=== PATIENT | female | born 1945 | race Caucasian/White ===

== ENCOUNTER 2017-05-16 03:05 | Observation (INO) | payer MEDICARE ==
--- OUTSIDE RECORDS SUMMARY | 2017-05-16 03:18 | XMS REPORT ---
:1945 External Reference #:[id number] Author Organization [employer] Address [address] [address] Phone [phone] Care Team Providers Name Role Phone Javier Thorne DO Primary Care Physician Unavailable Payers Type Date Identification Payment Subscriber Numbers Provider Health Maintenance Effective: Policy Number: Medicare Blue Jaja Gracia ([facility] [place]) 04/17/2013 [id number] [facility] Number: [id number] [address] PayID: [id number] VISHAL Villatoro [address] Problems Date Description Provider Status Onset: 08/27/2015 Headache Darian Grossman M.D. Active Family History Date Family Member(s) Problem(s) Comments Father Arrhythmia Father Heart Disease CABG x3 Father Stroke Mother Heart Disease Mother Stomach Cancer Onset: (2016) Mother Gallstones Mother Aortic valve replacement Mother Stroke Social History Type Date Description Comments Marital Status Single Lives With Male Partner Occupation Retired ETOH Use Denies alcohol use Smoking Patient has never smoked Recreational Drug Use Denies Drug Use Daily Caffeine Consumes on average 2 cups of regular coffee per day Exercise Type/Frequency Exercises rarely Allergies, Adverse Reactions, Alerts Date Description Reaction Status Severity Comments 2016 Beta Adrenergic Blockers itching active 08/27/2015 NKDA inactive Medications Medication Date Status Form Strength Qnty SIG Indications Ordering Provider Venlafaxine HCL 05/04/ Active Tablets 75mg 30tabs 1/2 po qd F06.32 Darian Yoo for 2 [place], weeks then M.D. 1 qd Clopidogrel 00/00/ Active Tablets 75mg 1 by mouth Unknown Bisulfate 0000 every day Pravastatin 0000/ Active Tablets 20mg 1 tablet Unknown Sodium 0000 by mouth once daily at bedtime Furosemide 00/ Active Tablets 20mg 1-2 tabs Unknown 0000 po daily for swelling prn Potassium 00/00/ Active Tablets 99mg once a day Unknown 0000 Prednisone 00/00/ Active Tablets 5mg 1 by mouth Unknown 0000 every day Valium 00/ Active Tablets 2mg 1 by mouth Unknown 0000 twice a day as needed Chlorthalidone / Active Tablets 25mg 1 by mouth Unknown 0000 every day Aspirin 00/ Active Tablets 81mg 4 by mouth Unknown 0000 every day Emergen-C Blue / Active Packet as needed Unknown 0000 Claritin / Active Capsules 10mg 1 tab Unknown 0000 daily as needed Topiramate 08/26/ Hx Tablets 25mg 30tabs 1 po qday Darian Frazier 2015 - Chauncey, M.D. 2016 Amlodipine 08/19/ Hx Tablets 5mg 30tabs 1 by mouth Darian Frazier Besjose manuel 2015 - every day Chauncey, M.D. 2015 Verapamil HCL 08/19/ Hx Tablets 40mg 60tabs 1 po bid Darian Frazier 2016 - Chauncey, M.D. 2017 Topiramate 07/25/ Hx Caps 25mg 240cap 4 po bid Darian Frzaier 2016 - Suzy lawton (currently Chauncey, 08/26/ taking 1 M.D. 2015 PO qd) Aspirin 00/ Hx Tablets 325mg 1 by mouth Unknown 0000 - every day 2016 Zyrtec Allergy / Hx Capsules 10mg 1 by mouth Unknown 0000 - every day 2016 Prednisone 00/ Hx Tablets 1mg 1-4 by Unknown 0000 - mouth 04/18/ every day 2018 as directed. Vital Signs Date Vital Result Comment 05/04/2017 Height 61 inches 5'1" Weight 179.25 lb Heart Rate 82 /min BP Systolic Sitting 128 mmHg BP Diastolic Sitting 82 mmHg Respiratory Rate 18 /min O2 % BldC Oximetry 94 % BMI (Body Mass Index) 33.9 kg/m2 12/28/2016 Height 61 inches 5'1" Weight 179.00 lb Heart Rate 64 /min BP Systolic 166 mmHg Rue reg cuff BP Diastolic 92 mmHg Rue reg cuff BP Systolic Sitting 162 mmHg Lue reg cuff BP Diastolic Sitting 92 mmHg Lue reg cuff BP Systolic Standing 168 mmHg Lue BP Diastolic Standing 70 mmHg Lue Respiratory Rate 16 /min BMI (Body Mass Index) 33.8 kg/m2 Ejection Fraction 60-65% 07/26/15 01/07/2016 Height 61 inches 5'1" Weight 140.00 lb Heart Rate 66 /min BP Systolic Sitting 124 mmHg BP Diastolic Sitting 76 mmHg O2 % BldC Oximetry 98 % BMI (Body Mass Index) 26.4 kg/m2 08/27/2015 Height 61 inches 5'1" Weight 139.00 lb Heart Rate 68 /min BP Systolic Sitting 128 mmHg BP Diastolic Sitting 80 mmHg Respiratory Rate 16 /min BMI (Body Mass Index) 26.3 kg/m2 Results Description No Information Procedures Date CPT Code Description Status 12/28/2016 13637 EKG Tracing & Interpretation Completed 07/26/2015 57021 ECHO Transthorasic Realtime 2D W Doppler & Color Completed Flow Hosp 07/25/2015 25161 EEG Recording Awake & Drowsy Completed 11/27/2013 53205 ECHO Stress Test Incl Perf Contiuous ekg Monitoring Completed W/Phys Superv Encounters Type Date Location Provider CPT E/M Dx Office Visit 12/28/2016 [facility] [address] R07.9 3:00p [facility] I10 M35.3 I65.22 R94.31 Office Visit 01/07/2016 8:45a [place] Darian Grossman, [address] I10 Serv Of Colby Turk R41.89 Z86.73 Office Visit 08/27/2015 10:30a [facility] Darian Grossman [address]405 G97.82 [place] I63.511 Office Visit 07/26/2015 11:46a [facility] Darian Grossman 71970 G40.109 [place] Office Visit 07/26/2015 10:13a [facility], Jacob Concepcion 00120 G97.82 Sarah ANN M.D. G40.909 I10 Office Visit 07/25/2015 11:42a [facility] Darian Grossman, 42375 I65.01 [place] R94.01 G40.109 Office Visit 07/25/2015 10:13a [facility], [address] R51 Hospitalists [place] M62.81 I10 Office Visit 07/24/2015 11:40a [facility] [address] G97.82 Office Visit 07/24/2015 10:11a [facility], Reza [address] R51 Hospitalists Hansa Subramanian M62.81 I10 Office Visit 07/09/2015 10:15a [facility], Jacob Concepcion [address] M79.1 Sarah ANN M.D. Office Visit 07/02/2015 11:05a [facility] Darian Grossman, [address] R51 [place] Z98.89 Plan of Care Future Appointment(s):08/31/2017 9:00 am - Darian Grossman M.D. at [facility]05/04/2017 - Darian Grossman M.D.I65.22 Occlusion and stenosis of left carotid sgblmqW72.511 Cereb infrc d/t unsp occls or stenos of right mid cereb artNew Therapy:Physical TherapyFollow up:3 - 4 [id number] Mood disord d/t physiol cond w major depressive-like epsdNew Medication:Venlafaxine HCL 75 mg
[2017-05-16] MEDS ORDERED: Aspirin Low Dose CHEW TAB* 81 MG PO ONE (03:37)
[2017-05-16] MEDS ORDERED: Nitroglycerin 2% OINT* 1 GM PAK TOPICAL ONE (03:38)
[2017-05-16 03:51] LABS: ABS Basophils 0.1 10^3/ul (0-0.2); ABS Eosinophils 0.1 10^3/ul (0-0.6); ABS Lymphocytes 1.6 10^3/ul (1.0-4.8); ABS Nucleated RBC 0 10^3/ul; Hematocrit 42 % (35-47); Hemoglobin 14.2 g/dl (12.0-16.0); Lymphocyte % 13.5 % (25-47); Mean Corpuscular HGB Conc 34 g/dl (31-36); Mean Corpuscular Hemoglobin 29 pg (27-31); Mean Corpuscular Volume 87 fL (80-97); Mean Platelet Volume 10 um3 (7.4-10.4); Nucleated Red Blood Cells % 0.1; Platelet Count 252 10^3/ul (150-450); Red Blood Count 4.86 10^6/ul (4.0-5.4); Red Cell Distribution Width 15 % (10.5-15); White Blood Count 11.8 10^3/ul (3.5-10.8)
[2017-05-16 04:04] LABS: INR 0.94 (0.77-1.02)
[2017-05-16 04:06] LABS: EGFR Non-African American 64.6 (>60)
[2017-05-16] MEDS ORDERED: Potassium Chlor TAB* 20 MEQ TAB.ER PO ONE ×2 (04:46→14:59)
[2017-05-16] MEDS ORDERED: Al Hydrox/Mg Hydrox/Simet LIQ* 30 ML UDC PO PRN (05:23)
[2017-05-16] MEDS ORDERED: Ondansetron INJ* 2 MG/ML VIAL IV PRN (05:23)
[2017-05-16] MEDS ORDERED: Diazepam TAB(*) 2 MG PO PRN (05:27)
--- NOTE | 2017-05-16 05:41 | ED ---
Antohny Diehl Thomas, scribed for Russel Javed on 05/16/17 at 0335 . HPI Chest Pain - HPI Summary HPI Summary: This patient is a 71 year old F presenting to ED with a chief complaint of chest pressure since 0000 today. The pt contributes her symptoms to her new medication Venlafaxine. Her symptoms started when she was lying in bed. The patient rates the pain 5/10 in severity. Symptoms aggravated and alleviated by nothing. Patient reports nausea. Patient denies vomiting. She took a baby aspirin at home. - History of Current Complaint Chief Complaint: EDChestPainROMI Time Seen by Provider: 05/16/17 03:16 Hx Obtained From: Patient Onset/Duration: Started Hours Ago, Still Present Timing: Constant, Lasting Hours Current Severity: Moderate Pain Intensity: 5 Pain Scale Used: 0-10 Numeric Aggravating Factor(s): Nothing Alleviating Factor(s): Nothing Associated Signs and Symptoms: Positive: Other: - Patient reports nausea. Patient denies vomiting. - Allergy/Home Medications Allergies/Adverse Reactions: Allergies Allergy/AdvReac Type Severity Reaction Status Date / Time Beta Adrenergic Blockers Allergy Unknown Verified 05/16/17 04:48 Reaction Details Home Medications: Home Medications Chlorthalidone TAB* 25 mg PO DAILY 05/16/17 [History Confirmed 05/16/17] Effexor Xr CAP* 37.5 mg PO DAILY 05/16/17 [History Confirmed 05/16/17] Lasix TAB* 20 mg PO DAILY PRN 05/16/17 [History Confirmed 05/16/17] Valium TAB(*) 2 mg PO QAM PRN 05/16/17 [History Confirmed 05/16/17] Valium TAB(*) 2 mg PO QPM 05/16/17 [History Confirmed 05/16/17] predniSONE TAB* 5 mg PO DAILY 05/16/17 [History Confirmed 05/16/17] PMH/Surg Hx/FS Hx/Imm Hx Cardiovascular History: Reports: Hx Hypercholesterolemia, Hx Hypertension Denies: Hx Congestive Heart Failure, Hx Pacemaker/ICD Respiratory History: Reports: Hx Asthma Musculoskeletal History: Reports: Other Musculoskeletal History - back pain Sensory History: Denies: Hx Hearing Aid Neurological History: Reports: Hx Migraine Psychiatric History: Denies: Hx Panic Disorder - Cancer History Cancer Type, 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 Negative: Vomiting All Other Systems Reviewed And Are Negative: Yes Physical Exam - Summary Physical Exam Summary: Appearance: Well appearing, no pain distress Skin: warm, dry, reflects adequate perfusion Head/face: normal Eyes: EOMI, JO ENT: normal Neck: supple, non-tender Respiratory: CTA, breath sounds present Cardiovascular: RRR, pulses symmetrical Abdomen: non-tender, soft Bowel: present Musculoskeletal: normal, strength/ROM intact Neuro: normal, sensory motor intact, A&Ox3 Triage Information Reviewed: Yes Vital Signs On Initial Exam: Initial Vitals Temp Pulse Resp BP Pulse Ox 97.4 F 71 18 176/109 97 05/16/17 03:08 05/16/17 03:08 05/16/17 03:08 05/16/17 03:08 05/16/17 03:08 Vital Signs Reviewed: Yes Diagnostics - Vital Signs Vital Signs Temp Pulse Resp BP Pulse Ox 05/16/17 03:08 97.4 F 71 18 176/109 97 - Laboratory Lab Results: Lab Results 05/16/17 05/16/17 05/16/17 Range/Units 03:30 03:30 03:30 WBC 11.8 H (3.5-10.8) 10^3/ul RBC 4.86 (4.0-5.4) 10^6/ul Hgb 14.2 (12.0-16.0) g/dl Hct 42 (35-47) % MCV 87 (80-97) fL MCH 29 (27-31) pg MCHC 34 (31-36) g/dl RDW 15 (10.5-15) % Plt Count 252 (150-450) 10^3/ul MPV 10 (7.4-10.4) um3 Neut % (Auto) 76.2 (38-83) % Lymph % (Auto) 13.5 L (25-47) % Lander % (Auto) 8.6 (1-9) % Eos % (Auto) 1.0 (0-6) % Baso % (Auto) 0.7 (0-2) % Absolute Neuts (auto) 9.0 H (1.5-7.7) 10^3/ul Absolute Lymphs (auto) 1.6 (1.0-4.8) 10^3/ul Absolute Monos (auto) 1.0 H (0-0.8) 10^3/ul Absolute Eos (auto) 0.1 (0-0.6) 10^3/ul Absolute Basos (auto) 0.1 (0-0.2) 10^3/ul Absolute Nucleated RBC 0 10^3/ul Nucleated RBC % 0.1 INR (Anticoag Therapy) 0.94 (0.77-1.02) APTT 31.4 (26.0-36.3) seconds Sodium (133-145) mmol/L Potassium (3.5-5.0) mmol/L Chloride (101-111) mmol/L Carbon Dioxide (22-32) mmol/L Anion Gap (2-11) mmol/L BUN (6-24) mg/dL Creatinine (0.51-0.95) mg/dL Est GFR ( Amer) (>60) Est GFR (Non-Af Amer) (>60) BUN/Creatinine Ratio (8-20) Glucose (70-100) mg/dL Calcium (8.6-10.3) mg/dL Total Bilirubin (0.2-1.0) mg/dL AST (13-39) U/L ALT (7-52) U/L Alkaline Phosphatase (34-104) U/L Troponin I (<0.04) ng/mL B-Natriuretic Peptide 57 ( - 100) pg/mL Total Protein (6.4-8.9) g/dL Albumin (3.2-5.2) g/dL Globulin (2-4) g/dL Albumin/Globulin Ratio (1-3) /30/18 Range/Units 03:30 WBC (3.5-10.8) 10^3/ul RBC (4.0-5.4) 10^6/ul Hgb (12.0-16.0) g/dl Hct (35-47) % MCV (80-97) fL MCH (27-31) pg MCHC (31-36) g/dl RDW (10.5-15) % Plt Count (150-450) 10^3/ul MPV (7.4-10.4) um3 Neut % (Auto) (38-83) % Lymph % (Auto) (25-47) % Lander % (Auto) (1-9) % Eos % (Auto) (0-6) % Baso % (Auto) (0-2) % Absolute Neuts (auto) (1.5-7.7) 10^3/ul Absolute Lymphs (auto) (1.0-4.8) 10^3/ul Absolute Monos (auto) (0-0.8) 10^3/ul Absolute Eos (auto) (0-0.6) 10^3/ul Absolute Basos (auto) (0-0.2) 10^3/ul Absolute Nucleated RBC 10^3/ul Nucleated RBC % INR (Anticoag Therapy) (0.77-1.02) APTT (26.0-36.3) seconds Sodium 136 (133-145) mmol/L Potassium 2.8 L (3.5-5.0) mmol/L Chloride 96 L (101-111) mmol/L Carbon Dioxide 33 H (22-32) mmol/L Anion Gap 7 (2-11) mmol/L BUN 14 (6-24) mg/dL Creatinine 0.87 (0.51-0.95) mg/dL Est GFR ( Amer) 83.0 (>60) Est GFR (Non-Af Amer) 64.6 (>60) BUN/Creatinine Ratio 16.1 (8-20) Glucose 120 H (70-100) mg/dL Calcium 10.6 H (8.6-10.3) mg/dL Total Bilirubin 1.10 H (0.2-1.0) mg/dL AST 26 (13-39) U/L ALT 23 (7-52) U/L Alkaline Phosphatase 69 (34-104) U/L Troponin I 0.01 (<0.04) ng/mL B-Natriuretic Peptide ( - 100) pg/mL Total Protein 7.4 (6.4-8.9) g/dL Albumin 4.3 (3.2-5.2) g/dL Globulin 3.1 (2-4) g/dL Albumin/Globulin Ratio 1.4 (1-3) Result Diagrams: 05/16/17 03:30 05/16/17 03:30 Lab Statement: Any lab studies that have been ordered have been reviewed, and results considered in the medical decision making process. - Radiology CXR Radiology Interpretation Completed By: ED Physician - NEGATIVE - EKG 0316 Cardiac Rate: NL EKG Rhythm: Sinus Bradycardia - 57 BPM EKG Interpretation: Nonspecific ST changes. Chest Pain Course/Dx - Course Assessment/Plan: This patient is a 71 year old F presenting to ED with a chief complaint of chest pressure since 0000 today. Radiology included CXR and EKG. In the ED course the patient was given aspirin and nitroglycerin. Bloodwork was obtained. The patient is diagnosed with CP r/o AK. The patient will be admitted by Dr. Mejia. - Chest Pain Differential Diagnosis/HQI/PQRI: Acute AK, ACS, CHF, Chest Wall, Lower Respiratory Infection, Pulmonary Edema - Diagnoses Provider Diagnoses: Chest pain, rule out acute myocardial infarction - Provider Notifications Discussed Care Of Patient With: Yudi Mejia Time Discussed With Above Provider: 04:50 Instructed by Provider To: Admit As Inpatient Discharge - Discharge Plan Condition: Stable Disposition: ADMITTED TO [facility] The documentation as recorded by the Anthony naidu Thomas accurately reflects the service I personally performed and the decisions made by Tegan hansen Emmanuel.
--- NOTE | 2017-05-16 07:30 | HP ---
CC: Dr. Thorne HISTORY AND PHYSICAL: DATE OF ADMISSION: 05/16/17 TIME OF EVALUATION: 0500. PRIMARY CARE PHYSICIAN: Dr. Thorne. CHIEF COMPLAINT: Chest pain. HISTORY OF PRESENT ILLNESS: This is a 71-year-old female with past medical history of TIA, hypertension, hyperlipidemia who presents to the emergency room with acute onset of chest pain. The patient states she got up around midnight to go to bathroom because she took Lasix earlier for swelling in the lower extremities. She returned from the bathroom, noted she was having some chest pain. She checked her blood pressure, it was elevated around 178 systolic. She was feeling nauseated; however, she has been having issues with nausea after being started on venlafaxine. She saw her primary care physician earlier this morning due to the side effect and he recommended decreasing her venlafaxine to every other day and she still gets nausea. She states she gets dizzy all the time with the headache. With the chest pain, it still persists, no shortness of breath. No diaphoresis. Her partner tells me that she was carrying heavy wood earlier this morning. She states it is not reproducible. She also took some Tums earlier, increase in burping with no relief in her discomfort. She has had a stress test many years ago and no significant changes in her weight. She does get lower extremity swelling. No recent URI symptoms, fevers or chills. Otherwise, review of systems is negative. In the emergency room, the patient had labs, imaging. She was given aspirin, nitro paste and potassium chloride. She was referred to the hospitalist service for further evaluation. PAST MEDICAL HISTORY: 1. History of CVA, she has residual left-sided weakness. 2. Hypertension. 3. History of seizures, not on antiepileptic. 4. Hyperlipidemia. 5. History of right carotid stenting. 6. 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 7. History of migraines. 8. PMR. 9. Depression/anxiety. MEDICATIONS: 1. Effexor 37.5 mg p.o. every other day. 2. Valium 2 mg in the evening and 2 mg in the morning as needed. 3. Prednisone 5 mg daily. 4. Lasix 20 mg daily as needed for lower extremity swelling. 5. Chlorthalidone 25 mg p.o. daily. 6. Pravastatin 20 mg p.o. at bedtime. 7. Plavix 75 mg daily. 8. Aspirin 325 mg daily. ALLERGIES: BETA BLOCKERS. FAMILY HISTORY: Father at age 89 from an [place]. Mother at age 90 from CVA. SOCIAL HISTORY: The patient lives with her partner, Catracho, who is her healthcare proxy. No history of tobacco, alcohol or illicit drug use. She is independent in her ADLs. REVIEW OF SYSTEMS: A 14-point review of systems as mentioned in the HPI, otherwise negative. PHYSICAL EXAMINATION GENERAL: In no acute distress. Resting comfortably with her partner at the bedside. VITAL SIGNS: Temp 97.4, pulse rate 52, respiratory rate 17, oxygen saturation 98% on room air, blood pressure 115/57. HEENT: Head: Normocephalic. Pupils are equal and reactive. Oropharynx: Mucous membranes moist. Tongue is noted to have partial removal. NECK: Supple. No lymphadenopathy. RESPIRATORY: Diminished breath sounds. No wheezes, rhonchi or rales. CARDIAC: Regular rate and rhythm. Harsh systolic murmur most prominent at the right sternal base. ABDOMEN: Soft nontender, nondistended. EXTREMITIES: Trace pretibial edema. +1 DPs. NEUROLOGIC: Alert and oriented x3. No focal neurologic deficits. DIAGNOSTIC STUDIES/LAB DATA: White count 11.8, hemoglobin 14.2, hematocrit 42 , platelets 252,000. INR is 0.95. Sodium 136, potassium 2.8, chloride 96, bicarb 33, BUN 14, creatinine 0.87, total bili is 1.10. Troponin is 0.01. BNP is 57. EKG shows normal sinus rhythm with nonspecific T-wave changes in the anterior leads. Chest x-ray wet read, mildly prominent interstitial findings. ASSESSMENT: This is a 71-year-old female with past medical history of cerebrovascular accident, hypertension, hyperlipidemia who presented to the emergency room with acute onset of chest pain. 1. Chest pain atypical in nature, it still persists. Some mild changes in her EKG. Potassium is low. She does have risk factors and has not had a stress test in several years. She also has a lot of episodes of dizziness with nausea , rather significant murmur on exam. Plan: We will admit her for rule out, trend her troponin, check her lipid panel , continue on her aspirin and Plavix. She is allergic to BETA BLOCKERS. We will order an echo and a chemical stress test, keep her n.p.o. Chronic medical problems: 1. Polymyalgia rheumatica. Continue prednisone 5 mg daily. 2. Hypertension. We will hold her chlorthalidone and Lasix in the setting of being n.p.o. 3. Depression anxiety. The patient seems to be having adverse reactions to venlafaxine, we will hold this. We will continue her Valium as needed. 4. FEN: Keep patient n.p.o. 5. DVT prophylaxis. The patient is at moderate risk. Place her on heparin subcu t.i.d. 6. Code status. Full code. TIME SPENT: Greater than 50 minutes has been spent doing the history and physical, more than half time spent in direct patient contact. [id number]/[facility] #: [id number] KARIE
[2017-05-16] MEDS: Heparin VIAL(*) 5000 UNITS/ML VIAL (FIVE THOUSAND) SUBCUT SCH ×2 (07:59→13:51)
[2017-05-16] MEDS ORDERED: KCL 20 MEQ/100 ML IVPREMIX* 20 MEQ/100 ML BAG IV SCH (08:00)
--- NOTE | 2017-05-16 08:02 | RAD ---
Indication: Chest pain. Single frontal view of the chest performed at 0425 hours was reviewed. Comparison is made with previous exam dated November 02, 2007. No mediastinal shift is noted. Heart is of normal size and configuration. Lung rich appear clear. IMPRESSION: NO ACTIVE CARDIOPULMONARY DISEASE IS NOTED.
[2017-05-16] MEDS: KCL premix 10 MEQ/50 ML IVPREMIX x 4 RUNS IV SCH ×5 (08:18→15:01)
[2017-05-16] MEDS ORDERED: predniSONE TAB* 5 MG PO SCH (09:00)
[2017-05-16] MEDS ORDERED: Aspirin EC Low Dose* 81 MG TAB.EC PO SCH (09:00)
[2017-05-16] MEDS ORDERED: Clopidogrel TAB* 75 MG PO SCH (09:00)
[2017-05-16 09:49] LABS: EGFR Non-African American 75.5 (>60)
--- NOTE | 2017-05-16 10:04 | ECHO ---
Patient: HIPOLITO NAYLOR [facility] Rec#: [id number] : 1945 Date: 05/16/2017 Age: 71y Height: 156.21 cm / 61.5 in Weight: 80.74 kg / 178.0 lbs Sex: F BSA: 1.81 [facility] Admit Date#: 05/16/2017 Type: Inpatient Referring: Yudi Mejia Reading: Malcom Cutler MD Line Patrolman: [facility] CC: Mati ALCAZAR,Javier Transthoracic Echocardiogram Indication: Chest pain BP: 133/65 HR: 58 Rhythm: Bradycardia Findings History: HLD, HTN, asthma, oral cancer with chemotherapy, PFO, TIA. Technical Comments: The study quality is fair. The study is technically limited due to patient body habitus. Comleted at 0840. Left Ventricle: The left ventricular chamber size is decreased. There is no left ventricular hypertrophy. There is a prominent septal knuckle. Global left ventricular wall motion and contractility are within normal limits. There is normal left ventricular systolic function. The estimated ejection fraction is 60-65%. There is no consistent Doppler evidence of clinically significant diastolic dysfunction. Left Atrium: The left atrial chamber size is normal. Right Ventricle: Moderator Band present. The right ventricular cavity size is normal. The right ventricular global systolic function is normal. Right Atrium: The right atrial cavity size is normal. A patent foramen ovale is visualized. Color flow does not visualize this well, flow noted with doppler. The patent foramen ovale was already known on prior study with agitated saline utilized. Aortic Valve: The aortic valve is trileaflet. The aortic valve leaflets are mildly thickened. There is no evidence of aortic regurgitation. There is no evidence of aortic stenosis. Mitral Valve: The mitral valve leaflets are mildly thickened. There is a trace of mitral regurgitation. There is no evidence of mitral stenosis. Tricuspid Valve: The tricuspid valve leaflets are normal. There is trace tricuspid regurgitation. The right ventricular systolic pressure is estimated at ( ) mmHg. Unable to estimate the right ventricular systolic pressure. There is no tricuspid stenosis. Pulmonic Valve: The pulmonic valve appears normal. There is a trace pulmonic regurgitation. There is no pulmonic stenosis. Pericardium: There is no significant pericardial effusion. Aorta: There is no dilatation of the ascending aorta. There is no dilatation of the aortic arch. The aortic root is normal in size. Pulmonary Artery: The main pulmonary artery is not well visualized. Venous: The inferior vena cava appears normal in size. There is a greater than 50% respiratory change in the inferior vena cava dimension. Conclusions There is a prominent septal knuckle. Global left ventricular wall motion and contractility are within normal limits. There is normal left ventricular systolic function. The estimated ejection fraction is 60-65%. There is a trace of mitral regurgitation. There is trace tricuspid regurgitation. There is a trace pulmonic regurgitation. A patent foramen ovale is visualized by doppler. Color flow does not visualize this well. The patent foramen ovale was already known on prior study with agitated saline utilized. The right sided chambers are of normal dimensions. No significant change compared to report of study from 07/26/2015 Measurements Name Value Normal Range RVIDd (AP) 2D 3.1 cm (0.9 - 2.6) RVDdMajor (2D) 2.8 cm (2.2 - 4.4) RAd ISD 4CH 4.3 cm (3.4 - 4.9) RA (A4C)W 3.1 cm (2.9 - 4.6) IVSd (2D) 0.9 cm (0.6 - 1) LVPWd (2D) 0.9 cm (0.6 - 1) LVIDd (2D) 3.5 cm (3.6 - 5.4) LVIDs (2D) 1.7 cm - LV FS (2D) 52 % (25 - 45) Aortic Annulus 1.7 cm (1.4 - 2.6) Ao root diameter (2D) 3.1 cm (2.1 - 3.5) Ascending Ao 3 cm (2.1 - 3.4) Aortic arch 2 cm (1.8 - 3.4) LA dimension (AP) 2D 3.5 cm (2.3 - 3.8) LAd ISD 4CH 4.7 cm (2.9 - 5.3) LA ISD 4CH W 3.2 cm (2.5 - 4.5) Name Value Normal Range LA ESV SP 4CH (A/L) 36 ml - LA ESV SP 2CH (A/L) 58 ml - LA ESV BP (A/L) 47 ml - LA ESV BP (A/L) index 26 ml/m2 - LA ESV SP 4CH (MOD) 35 ml - LA ESV SP 2CH (MOD) 55 ml - Name Value Normal Range MV E-wave Vmax 1.2 m/sec - MV deceleration time 219.2 msec - MV A-wave Vmax 0.62 m/sec - MV E:A ratio 1.88 ratio - LV septal e' Vmax 0.07 m/sec - LV lateral e' Vmax 0.09 m/sec - LV E:e' septal ratio 17.14 ratio - LV E:e' lateral ratio 13.33 ratio - Name Value Normal Range AV Vmax 1.8 m/sec - AV VTI 33.73 cm - AV peak gradient 12.47 mmHg - AV mean gradient 7.18 mmHg - LVOT Vmax 1.66 m/sec - LVOT VTI 37.23 cm - LVOT peak gradient 11.03 mmHg - LVOT mean gradient 6.06 mmHg - MARQUITA Vmax 1.13 m/sec - Name Value Normal Range TR Vmax 2.5 m/sec - TR peak gradient 25 mmHg - RAP 3 mmHg - IVC diameter 2 cm - Name Value Normal Range PV Vmax 0.72 m/sec - PV peak gradient 2.08 mmHg -
[2017-05-16] MEDS ORDERED: Regadenoson* 0.4 MG/5 ML SYRINGE ONE (13:14)
[2017-05-16 14:17] VITALS: BP 136/71
--- NOTE | 2017-05-16 14:27 | RAD ---
Edited for charges. Indication: Chest pain. Myocardial perfusion scan was performed utilizing 1 day protocol. Rest myocardial perfusion was performed after intravenous injection of 10.5 mCi of technetium 99m tetrofosmin. Pharmacological stress was applied and 25.4 mCi technetium 99 tetrofosmin was injected for the stress portion of the study. The left ventricle appears normal in size. There is no significant fixed or reversible perfusion defects identified. T.i.d. is 1.27 which is within normal limits. Ejection fraction at stress is 92%. Evaluation of wall motion demonstrates no focal wall motion abnormality. IMPRESSION: No evidence of fixed or reversible perfusion defect is identified. ASSESSMENT: Low risk Based on imaging criteria from ACC/AHA 2002 Guideline Update for the Management of Patients With Chronic Stable Angina Table 23. Noninvasive Risk Stratification. MTDD
[2017-05-16] MEDS ORDERED: Potassium Chloride LIQUID* 20 MEQ PACKET PO ONE (16:15)
--- NOTE | 2017-05-17 04:46 | DS ---
Cc: Dr. Thorne. * DISCHARGE SUMMARY: DATE OF ADMISSION: 05/16/17 DATE OF DISCHARGE: 05/16/17 PRIMARY CARE PROVIDER: Dr. Thorne. DISCHARGE DIAGNOSES: 1. Chest pain with low probability to cardiac stress test on 05/16/17. 2. Hypokalemia. SECONDARY DIAGNOSES: 1. History of cerebrovascular accident with residual left-sided weakness. 2. Hypertension. 3. History of seizures. 4. Hyperlipidemia. 5. History of right carotid stenting. 6. History of tongue cancer 22 years ago, status post radical neck surgery with chronic problems with swallowing. 7. History of migraine. 8. History of polymyalgia rheumatica, on chronic steroid use. 9. History of depression and anxiety. MEDICATIONS ON DISCHARGE: Mostly unchanged from prior, 1. "Addition of potassium chloride 20 mEq liquid daily for 7 days." The remaining medications are unchanged and include, 1. Effexor 37.5 mg every other day. 2. Valium 2 mg in the evening and 2 mg in the morning as needed. 3. Prednisone 5 mg daily. 4. Lasix 20 mg daily p.r.n. leg swelling. 5. Chlorthalidone 25 mg daily. 6. Pravastatin 20 mg at bedtime. 7. Plavix 75 mg daily. 8. Aspirin 325 mg daily. LABORATORY DATA AND STUDIES PERFORMED DURING THE HOSPITAL STAY: On 05/16/17, sodium of 137, potassium 2.8, chloride 97, carbon dioxide 29, BUN 13, creatinine 0.76. Liver function tests were unremarkable. The patient's calcium was mildly elevated at 10.4, which is consistent with prior measures. Triglycerides of 88, cholesterol of 175, LDL of 82, and HDL of 75. TRANSTHORACIC ECHOCARDIOGRAM: EF of 60% to 65% and trace tricuspid regurgitation and trace pulmonic regurgitation. Cardiac stress documented 05/16/17 showed EF of 92% and no evidence of fixed or reversible perfusion defect. It was estimated as "low risk." HOSPITALIZATION COURSE: Jaja Kiran is a 71-year-old female with history of several chronic past medical conditions as mentioned above who presented complaining of chest pain. For full details of patient's presentation, please see history and physical documented by Dr. Mejia on 05/16/17. Shortly, the patient did not complain of any chest pain after the admission. Her troponins continued to be negative and patient had an unremarkable cardiac stress test on 05/16/17. She is going to be discharged home with recommendations to follow up with her primary care provider in approximately 7 days. She received prescription for 20 mEq of potassium chloride liquid form to be taken daily for another 7 days as well as for basic metabolic lab work to be drawn in approximately 7 days. The patient was also noted to have mild hypercalcemia for which it is recommended for the patient to have outpatient followup lab work. Physical exam at discharge is unchanged from admission. [id number]/[facility] #: [id number] KARIE
== END 2017-05-16 16:59 | disposition home or self-care (01) ==
LOC: ED 03:05 → MEDTELE 05:23
PROVIDERS: ADMIT Pediatrics; ATTEND Internal Medicine
DX: R07.9 Chest pain, unspecified (principal); E87.6 Hypokalemia; Z86.73 Personal history of transient ischemic attack (TIA), and cerebral infarction without residual deficits; I10 Essential (primary) hypertension; E78.5 Hyperlipidemia, unspecified; R11.0 Nausea; Z86.79 Personal history of other diseases of the circulatory system; Z86.69 Personal history of other diseases of the nervous system and sense organs; Z85.810 Personal history of malignant neoplasm of tongue; Z79.82 Long term (current) use of aspirin
CPT/HCPCS: 36415; 71045; 78452; 80048; 80053; 80061; 83735; 83880; 84484; 85025; 85610; 85730; 93005; 93017; 93306; 96365; 96366; 99284; A9270-GY; A9502; G0378; J2785; J3480; J7512

== ENCOUNTER 2018-05-23 12:00 | Emergency (ER) | payer MEDICARE ==
[2018-05-23 14:00] LABS: ABS Basophils 0 10^3/ul (0-0.2); ABS Eosinophils 0 10^3/ul (0-0.6); ABS Lymphocytes 1.2 10^3/ul (1.0-4.8); ABS Monocytes 0.6 10^3/ul (0-0.8); ABS Neutrophils 8.2 10^3/ul (1.5-7.7); ABS Nucleated RBC 0 10^3/ul; Eosinophil % 0.3 %; Hematocrit 45 % (35-47); Hemoglobin 15.5 g/dl (12.0-16.0); Lymphocyte % 11.7 %; Mean Corpuscular HGB Conc 34 g/dl (31-36); Mean Corpuscular Hemoglobin 30 pg (27-31); Mean Corpuscular Volume 88 fL (80-97); Mean Platelet Volume 9.8 fL (7.4-10.4); Nucleated Red Blood Cells % 0; Platelet Count 294 10^3/ul (150-450); Red Blood Count 5.16 10^6/ul (4.00-5.40); Red Cell Distribution Width 14 % (10.5-15); White Blood Count 10.1 10^3/ul (3.5-10.8)
[2018-05-23 14:04] LABS: INR 0.99 (0.77-1.02)
[2018-05-23 14:17] LABS: Albumin 4.8 g/dL (3.2-5.2); Albumin/Globulin Ratio 1.5 (1-3); BUN/Creatinine Ratio 23.1 (8-20); Calcium 10.6 mg/dL (8.6-10.3); EGFR Non-African American 61.1 (>60); Globulin 3.1 g/dL (2-4); HDL Cholesterol 76.2 mg/dL; Potassium 3.8 mmol/L (3.5-5.0); Total Bilirubin 0.9 mg/dL (0.2-1.0); Total Protein 7.9 g/dL (6.4-8.9)
--- NOTE | 2018-05-23 14:35 | ED ---
Neurological HPI - HPI Summary HPI Summary: This pt is a 72 y/o female [facility] [place]/o right sided headache since yesterday. Pt notes she had a headache last night located on the right side of her head that lasted approximately 5-6 hours. She states she was getting ready to come to the ED last night but her headache alleviated. This morning she reports she felt ok but was getting a little confused and had throat constriction. Denies weakness, new numbness, chest pain, SOB. Pt notes she currently feels some dizziness and "something" on her chest unable to describe it, although she denies chest pain, fluttering, pounding, palpitations. Pt states she does not feel normal. PMHx: right carotid stent placement in [place], stroke 3 years ago after stent placement. She states her left carotid is completely occluded. Pt has had radiation to her mouth and throat 23 years ago. Her medications include 5 mg of prednisone. - History of Current Complaint Chief Complaint: EDNeurologicalDeficit Stated Complaint: RIGHT SIDED HEADACHE,DIZZY,DISORIENTED Time Seen by Provider: 05/23/18 14:17 Hx Obtained From: Patient Onset/Duration: Started days ago - 1, Still Present Timing: Constant Current Severity: Moderate Headache Location: Diffuse (Right) Pain Intensity: 1 Pain Scale Used: 0-10 Numeric Character: Agitation, Other: - headache on the right, throat constriction Aggravating: Nothing Alleviating: Nothing Associated Signs and Symptoms: Positive: Headache, Confusion, Pain. Negative: Weakness, Numbness, Fever, Chest Pain, Shortness of Breath - Additional Pertinent History Primary Care Physician: [id number] - Allergy/Home Medications Allergies/Adverse Reactions: Allergies Allergy/AdvReac Type Severity Reaction Status Date / Time Beta-Adrenergic Agents Allergy Unknown Verified 05/23/18 12:21 Reaction Details Home Medications: Home Medications Ascorbic Acid/Multivit-Min [Emergen-C Vitamin C] 1 beto PO DAILY 05/23/18 [ History Confirmed 05/23/18] Biotin 7,500 mcg PO DAILY 05/23/18 [History Confirmed 05/23/18] Chlorthalidone TAB* [Hygroton TAB*] 25 mg PO DAILY 05/23/18 [History Confirmed 05/23/18] Clopidogrel TAB* [Plavix TAB*] 75 mg PO DAILY 05/23/18 [History Confirmed ] Cyanocobalamin TAB* [Vitamin B12 TAB*] 1,000 mcg PO DAILY 05/23/18 [History Confirmed 05/23/18] Diazepam TAB(NF) [Valium TAB(NF)] 2 mg PO QPM PRN 05/23/18 [History Confirmed ] Furosemide TAB* [Lasix TAB*] 20 mg PO DAILY PRN 05/23/18 [History Confirmed 10/03] LoraTADine TAB(NF) [Claritin 10 MG TAB(NF)] 10 mg PO DAILY 05/23/18 [History Confirmed 05/23/18] Magnesium Oxide [Magnesium] 500 mg PO DAILY 05/23/18 [History Confirmed 05/23/18 ] Zinc Gluconate [Zinc] 50 mg PO DAILY 05/23/18 [History Confirmed 05/23/18] predniSONE TAB* [Deltasone TAB*] 5 mg PO DAILY 05/23/18 [History Confirmed 05/23] PMH/Surg Hx/FS Hx/Imm Hx Cardiovascular History: Reports: Hx Angina, Hx Hypercholesterolemia, Hx Hypertension Denies: Hx Congestive Heart Failure, Hx Coronary Artery Disease, Hx Myocardial Infarction, Hx Pacemaker/ICD, Hx Valvular Heart Disease Respiratory History: Reports: Hx Asthma Musculoskeletal History: Reports: Other Musculoskeletal History - back pain Sensory History: Reports: Hx Contacts or Glasses Denies: Hx Hearing Aid Opthamlomology History: Reports: Hx Contacts or Glasses Neurological History: Reports: Hx Migraine, Hx Seizures, Other Neuro Impairments /Disorders - cerebral hyper perfusion Psychiatric History: Denies: Hx Panic Disorder - Cancer History Cancer Type, Location and Year: neck/oral Hx Chemotherapy: Yes - CANCER OF THE TONGUE, 1995 Hx Radiation Therapy: Yes - CANCER OF THE TONGUE - Surgical History Surgery Procedure, Year, and Place: TONGUE CANCER 1995/ neck, CAROTID STENT RIGHT SIDE - 06/09/2015, [facility] Infectious Disease History: No Infectious Disease History: Denies: Traveled Outside the [place] in Last 30 Days - Family History Known Family History: Positive: Cardiac Disease - [place] - father, > 50 - Social History Alcohol Use: None Hx Substance Use: No Substance Use Type: Reports: Marijuana Substance Use Comment - Amount & Last Used: once a week Hx Tobacco Use: No Smoking Status (MU): Never Smoked Tobacco Review of Systems Negative: Fever, Chills ENT: Other - POS: throat constriction Negative: Chest Pain Negative: Shortness Of Breath Neurological: Other - POS: dizziness, slight confusion Positive: Headache. Negative: Weakness, Numbness All Other Systems Reviewed And Are Negative: Yes Physical Exam - Summary Physical Exam Summary: VITAL SIGNS: Reviewed. GENERAL: Patient is a well-developed and nourished female who is lying comfortable in the stretcher. Patient is not in any acute respiratory distress. HEAD AND FACE: No signs of trauma. No ecchymosis, hematomas or skull depressions. No sinus tenderness. EYES: PERRLA, EOMI x 2, No injected conjunctiva, no nystagmus. No photophobia. EARS: Hearing grossly intact. Ear canals and tympanic membranes are within normal limits. MOUTH: Oropharynx within normal limits. NECK: Supple, trachea is midline, no adenopathy, no JVD, no carotid bruit, no c- spine tenderness, neck with full ROM. No meningeal signs, no Kernig's or brudzinskis signs. CHEST: Symmetric, no tenderness at palpation LUNGS: Clear to auscultation bilaterally. No wheezing or crackles. CVS: Regular rate and rhythm, S1 and S2 present, no murmurs or gallops appreciated. ABDOMEN: Soft, non-tender. No signs of distention. No rebound no guarding, and no masses palpated. Bowel sounds are normal. EXTREMITIES: FROM in all major joints, no edema, no cyanosis or clubbing. NEURO: Alert and oriented x 3. No acute neurological deficits. Follows commands. Pt has chronic slurred speech. SKIN: Dry and warm GCS: 15 Triage Information Reviewed: Yes Vital Signs On Initial Exam: Initial Vitals Temp Pulse Resp BP Pulse Ox 97.9 F 83 17 161/91 97 05/23/18 12:16 05/23/18 12:16 05/23/18 12:16 05/23/18 12:16 05/23/18 12:16 Vital Signs Reviewed: Yes Diagnostics - Vital Signs Vital Signs Temp Pulse Resp BP Pulse Ox 05/23/18 12:16 97.9 F 83 17 161/91 97 - Laboratory Lab Results: Lab Results 05/23/18 05/23/18 05/23/18 Range/Units 13:41 13:41 13:41 WBC 10.1 (3.5-10.8) 10^3/ul RBC 5.16 (4.00-5.40) 10^6/ul Hgb 15.5 (12.0-16.0) g/dl Hct 45 (35-47) % MCV 88 (80-97) fL MCH 30 (27-31) pg MCHC 34 (31-36) g/dl RDW 14 (10.5-15) % Plt Count 294 (150-450) 10^3/ul MPV 9.8 (7.4-10.4) fL Neut % (Auto) 81.4 % Lymph % (Auto) 11.7 % Charlotte % (Auto) 6.1 % Eos % (Auto) 0.3 % Baso % (Auto) 0.5 % Absolute Neuts (auto) 8.2 H (1.5-7.7) 10^3/ul Absolute Lymphs (auto) 1.2 (1.0-4.8) 10^3/ul Absolute Monos (auto) 0.6 (0-0.8) 10^3/ul Absolute Eos (auto) 0 (0-0.6) 10^3/ul Absolute Basos (auto) 0 (0-0.2) 10^3/ul Absolute Nucleated RBC 0 10^3/ul Nucleated RBC % 0 INR (Anticoag Therapy) 0.99 (0.77-1.02) Sodium 139 (135-145) mmol/L Potassium 3.8 (3.5-5.0) mmol/L Chloride 99 L (101-111) mmol/L Carbon Dioxide 34 H (22-32) mmol/L Anion Gap 6 (2-11) mmol/L BUN 21 (6-24) mg/dL Creatinine 0.91 (0.51-0.95) mg/dL Est GFR ( Amer) 74.0 (>60) Est GFR (Non-Af Amer) 61.1 (>60) BUN/Creatinine Ratio 23.1 H (8-20) Glucose 115 H (70-100) mg/dL Lactic Acid (0.5-2.0) mmol/L Calcium 10.6 H (8.6-10.3) mg/dL Total Bilirubin 0.90 (0.2-1.0) mg/dL AST 27 (13-39) U/L ALT 26 (7-52) U/L Alkaline Phosphatase 80 (34-104) U/L Troponin I 0.00 (<0.04) ng/mL Total Protein 7.9 (6.4-8.9) g/dL Albumin 4.8 (3.2-5.2) g/dL Globulin 3.1 (2-4) g/dL Albumin/Globulin Ratio 1.5 (1-3) Triglycerides 77 mg/dL Cholesterol 186 mg/dL LDL Cholesterol 94 mg/dL HDL Cholesterol 76.2 mg/dL Blood Type Antibody Screen 05/23/18 05/23/18 Range/Units 13:41 13:41 WBC (3.5-10.8) 10^3/ul RBC (4.00-5.40) 10^6/ul Hgb (12.0-16.0) g/dl Hct (35-47) % MCV (80-97) fL MCH (27-31) pg MCHC (31-36) g/dl RDW (10.5-15) % Plt Count (150-450) 10^3/ul MPV (7.4-10.4) fL Neut % (Auto) % Lymph % (Auto) % Charlotte % (Auto) % Eos % (Auto) % Baso % (Auto) % Absolute Neuts (auto) (1.5-7.7) 10^3/ul Absolute Lymphs (auto) (1.0-4.8) 10^3/ul Absolute Monos (auto) (0-0.8) 10^3/ul Absolute Eos (auto) (0-0.6) 10^3/ul Absolute Basos (auto) (0-0.2) 10^3/ul Absolute Nucleated RBC 10^3/ul Nucleated RBC % INR (Anticoag Therapy) (0.77-1.02) Sodium (135-145) mmol/L Potassium (3.5-5.0) mmol/L Chloride (101-111) mmol/L Carbon Dioxide (22-32) mmol/L Anion Gap (2-11) mmol/L BUN (6-24) mg/dL Creatinine (0.51-0.95) mg/dL Est GFR ( Amer) (>60) Est GFR (Non-Af Amer) (>60) BUN/Creatinine Ratio (8-20) Glucose (70-100) mg/dL Lactic Acid 0.9 (0.5-2.0) mmol/L Calcium (8.6-10.3) mg/dL Total Bilirubin (0.2-1.0) mg/dL AST (13-39) U/L ALT (7-52) U/L Alkaline Phosphatase (34-104) U/L Troponin I (<0.04) ng/mL Total Protein (6.4-8.9) g/dL Albumin (3.2-5.2) g/dL Globulin (2-4) g/dL Albumin/Globulin Ratio (1-3) Triglycerides mg/dL Cholesterol mg/dL LDL Cholesterol mg/dL HDL Cholesterol mg/dL Blood Type A Positive Antibody Screen Negative Result Diagrams: 05/23/18 13:41 05/23/18 13:41 Lab Statement: Any lab studies that have been ordered have been reviewed, and results considered in the medical decision making process. - Radiology Chest XR Radiology Interpretation Completed By: Radiologist Summary of Radiographic Findings: IMPRESSION: Stigmata of potential chronic obstructive lung disease. No acute cardiopulmonary process evident. Dr. Brown has reviewed this report. - CT Brain CT CT Interpretation Completed By: Radiologist Summary of CT Findings: IMPRESSION: #. No CT evidence for an acute intracranial process. #. Mild involutional change and stigmata of chronic small vessel ischemic disease. Dr. Brown has reviewed this report. - EKG 12:43 Cardiac Rate: NL - at 70 bpm EKG Rhythm: Sinus Rhythm EKG Comparison: No Significant Change - similar to prior EKG on 05/16/17 Summary of EKG Findings: No ST elevations. ST depressions in leads V2-V6. Re-Evaluation - Re-Evaluation First Eval Re-Evaluation Time: 16:40 Comment: After Dr. Pedersen's assessment, he recommends pt can be discharged home. Course/Dx - Course Assessment/Plan: Blood work without any significant abnormality except for chloride 99, carbon dioxide is 34, glucose 115, calcium 10.6, urinalysis is negative for UTI. Chest x-ray impression: Stigmata for potential chronic obstructive pulmonary disease. No acute cardiopulmonary process. Head CT impression: no CT evidence for an acute intracranial process. Mild involutional changes and the stigmata of chronic small vessel ischemic disease. At this point I discussed my physical exam, findings and test results with Dr. Pedersen, neurologist, who assessed the patient. After his assessment, he decided to discharge the patient home with follow-up from her primary care physician with a diagnosis of tension headache. . I discussed all the findings and test results with the patient. Patient was instructed to return to the emergency room immediately if any of the symptoms return or worsens. Plan of care was discussed with the patient and understands and agrees. All questions were answered at patient satisfaction. There were no further complaints or concerns. Lung exam before discharge: CTA B/L. Good air exchange. No wheezing or crackles heard. CVS: S1 and S2 present. No murmurs appreciated. Patient is alert and oriented x 3. Patient is hemodynamically stable. Patient will be discharged home with follow up from her PCP in the next 2-3 days. - Differential Dx Differential Diagnoses Neuro: Positive: Cephalgia, Cerebrovascular Accident, Seizure Disorder, Transient Ischemic Attack - Diagnoses Provider Diagnoses: Tension headache - Physician Notifications Discussed Care Of Patient With: Kevin Pedersen Time Discussed With Above Provider: 14:47 Instructed by Provider To: Other - Discussed pt care with Dr. Pedersen, neurologist , who will consult on the pt. Discharge - Sign-Out/Discharge Documenting (check all that apply): Patient Departure - Discharge home Patient Received Moderate/Deep Sedation with Procedure: No - Discharge Plan Condition: Stable Disposition: HOME Patient Education Materials: Tension Headache (ED) Referrals: Javier Thorne DO [Primary Care Provider] - Additional Instructions: FOLLOW UP WITH YOUR PRIMARY CARE PROVIDER WITHIN ONE WEEK FOR HIGH BLOOD PRESSURE NOTED TODAY. RETURN TO THE ED FOR ANY NEW OR WORSENING SYMPTOMS. - Billing Disposition and Condition Condition: STABLE Disposition: Home - Attestation Statements Document Initiated by Cristofer: Yes Documenting Scribe: Elizabeth Salcedo Provider For Whom Cristofer is Documenting (Include Credential): Javid Brown MD Scribe Attestation: Elizabeth Diehl, sayraibed for Javid Brown MD on 05/25/18 at 2037. Scribe Documentation Reviewed: Yes Provider Attestation: The documentation as recorded by the Elizabeth naidu accurately reflects the service I personally performed and the decisions made by me, Javid Brown MD Status of Scribe Document: Viewed
[2018-05-23 15:25] LABS: Urine Appearance Clear; Urine Bacteria Absent (Absent); Urine Bilirubin Negative (Negative); Urine Blood Negative (Negative); Urine Color Yellow; Urine Glucose Negative (Negative); Urine Ketones Negative (Negative); Urine Nitrite Negative (Negative); Urine Protein Negative (Negative); Urine Red Blood Cell Trace(0-2/hpf) (Absent); Urine Specific Gravity 1.008 (1.010-1.030); Urine Squamous Epithelial Cell Present (Absent); Urine Urobilinogen Negative (Negative); Urine White Blood Cell Trace(0-5/hpf) (Absent)
[2018-05-23 17:18] VITALS: BP 143/96
--- NOTE | 2018-05-23 19:28 | CONS ---
NEUROLOGY CONSULTATION NOTE: DATE OF CONSULT: 05/23/18 - [facility] DEPT CONSULTING PROVIDER: Dr. Brown. REASON FOR CONSULT: Transient headache. CHIEF COMPLAINT: Increase in stressors recently. HISTORY OF PRESENT ILLNESS: Mrs. Jaja Kiran is a pleasant 72-year-old right- handed female with history of occlusion of the left internal carotid artery and stenosis of the right internal carotid artery, status post stenting on 06/09/15. I reviewed the medical history. The patient was evaluated extensively by Dr. Grossman in [address] Barrios a few weeks after that. The patient was evaluated for headache and left-sided weakness. She was found to have a subacute small infarction involving the right posterior frontal canales radiata and was recommended to be placed on Plavix, antiplatelet therapy. The patient had headaches at that time. She stated that she has had a rough week so far. Monday, her son who is 52 years old, who suffers from intractable frontal lobe epilepsy, had a seizure in [facility] in [place]. He was hospitalized briefly. She is having a tough time taking care of him, especially given his frontal lobe syndrome. Since then, she has been very frustrated and does not know how to tell her son to find a fci to live in. He is very stubborn. She would like to sell her house and move to [place] to join other family members, but she is not doing that because she feels like she is neglecting her son. This morning, the patient was on her computer when suddenly she developed a gradual onset right frontal headache that was 5/10 in severity, nonradiating, associated with slight dull pain and photosensitivity, but no nausea. With Valsalva maneuver such as straining, coughing, or sneezing does not exacerbate the headache. She was slightly concerned, but felt a little anxious to start with before she even had the headache. By the time she came to the ER, the headache was completely gone. She is currently asymptomatic. She has no focal weakness or paresthesias. 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 Her blood pressure was slightly elevated, but improved before I evaluated her today. She had a CT of the head without contrast that showed no evidence of acute intracranial abnormality. I personally reviewed this study. PAST MEDICAL HISTORY: Tongue cancer, status post radical neck dissection and radiation to the neck in the 90s; left internal carotid artery complete occlusion; high grade stenosis of right ICA with stenting; hyperlipidemia; migraine headaches. HOME MEDICATIONS: Include: 1. Pravastatin 20 mg daily. 2. Aspirin 324 mg p.o. daily. 3. Potassium 20 mEq p.o. daily. 4. Zinc 50 mg p.o. daily. 5. Magnesium 500 mg daily. 6. Cyanocobalamin 1000 mcg p.o. daily. 7. Loratadine 10 mg p.o. daily. 8. Diazepam 2 mg p.o. at night. 9. Furosemide 20 mg p.o. daily. 10. Prednisone 5 mg p.o. daily. 11. Chlorthalidone 25 mg p.o. daily. 12. Clopidogrel 75 mg p.o. daily. 13. The patient is on steroid therapy for history of polymyalgia rheumatica. ALLERGIES: No known drug allergies. FAMILY HISTORY: No family history of stroke or seizures. SOCIAL HISTORY: She lives with her son. She drinks alcohol occasionally. She denied tobacco use. REVIEW OF SYSTEMS: A 14-point review of systems was otherwise normal except for what is mentioned in the HPI. PHYSICAL EXAMINATION: Vitals: Temperature of 97.9, pulse rate of 81, respiratory rate 16, oxygen saturation 98%, blood pressure 129/89. Well- nourished, well- developed female, in no acute distress. Head: She has atrophy and tightness of the neck muscles with some hypertrophy of the scalene muscles. Eyes: Conjunctivae/corneas are clear. Neck is supple. No lymphadenopathy. Lungs are clear to auscultation bilaterally. Cardiovascular: Regular rate and rhythm with normal S1, S2. Extremities: Normal range of motion, with no cyanosis. Skin: No skin lesions or lacerations. Psychiatric: Affect is broad and normal mood. Neurological Examination: Mental Status: Awake, alert, oriented to person, place, time, and general circumstance. She has flaccid dysarthria. Cranial Nerves: Normal to confrontation testing bilaterally. Extraocular muscles are intact. Sensation is intact on the forehead, cheeks, and jaw region bilaterally. She has no facial droop. She is able to hear throughout the history process. She has tongue atrophy and asymmetric palatal elevation. Motor: She has no abnormal movements or pronator drift. 5/5 strength in the upper and lower extremities proximally and distally. Reflexes were 2+ throughout in the upper and lower extremities. Plantar-flexion bilaterally. Sensation is intact to light touch throughout. Coordination: Normal [id number]-[id number] and [id number] testing bilaterally. Gait : Slight antalgic gait, but no ataxia. ASSESSMENT and RECOMMENDATIONS: Mrs. Jaja Kiran is a 72-year-old female with a history of neck radiation due to tongue and throat cancer, who has history of left internal carotid artery occlusion and right internal carotid artery stenosis, status post stent placement, who also has a history of migraine headaches, who presented with mild headache today that has resolved. She specifically stated that this is nothing compared to the headache she had in 2016 and this is very mild. She is going through many stressors at home as she is caring for someone who has epilepsy. I suspect the patient has tension headache. The patient does not want to be hospitalized at this point as she has no other symptoms. We agreed to send her home and informed her that if she develops any new neurological deficit, she should come back to the ED for further evaluation. Treatment plan was discussed with the patient and Dr. Brown. The patient will be discharged to home. [id number]/[facility] #: [id number] KARIE
== END 2018-05-23 17:17 | disposition home or self-care (01) ==
LOC: ED 12:00
DX: G44.209 Tension-type headache, unspecified, not intractable (principal); R41.0 Disorientation, unspecified; R42 Dizziness and giddiness; I10 Essential (primary) hypertension; Z85.810 Personal history of malignant neoplasm of tongue; E78.5 Hyperlipidemia, unspecified
CPT/HCPCS: 36415; 70450; 71046; 80053; 80061; 81003; 81015; 83605; 84484; 85025; 85610; 86850; 86900; 86901; 87086; 93005; 99283